=== PATIENT | female | born 1980 | race Two or more races ===

== ENCOUNTER 2020-11-14 17:53 | Inpatient (IN) | payer OTHER ==
[~2020-11-14] VITALS: Ht 157.5 cm; Wt 77.1 kg
[~2020-11-14 17:53] MED LIST: SYNTHROID50 MCG
[2020-11-15] MEDS ORDERED: SYNTHROID75 MCG (08:01)
== END 2020-11-17 16:30 | disposition home or self-care (01) | DRG 446 ==
LOC: ER 17:53 → MEDJ 23:40
PROVIDERS: ADMIT Internal Medicine; ATTEND Internal Medicine
PROC: 0FJB8ZZ Inspection of Hepatobiliary Duct, Via Natural or Artificial Opening Endoscopic (ICD-10-PCS; principal; 2020-11-15)
DX: K80.50 Calculus of bile duct without cholangitis or cholecystitis without obstruction (principal); Z20.822 Contact with and (suspected) exposure to COVID-19; E03.8 Other specified hypothyroidism; R10.13 Epigastric pain

== ENCOUNTER 2025-04-09 09:14 | Inpatient (IN) | payer OTHER ==
[~2025-04-09] VITALS: Ht 160 cm; Wt 72.6 kg
[~2025-04-09 09:14] MED LIST changes: +SYNTHROID75 MCG
--- NOTE | 2025-04-09 10:35 | NUR ---
PACIENTE REFIERE DOLOR ABDOMINAL Y VOMITOS, REFIERE CONSULTA CON DR. Dominic MRECHANT SE MIDEN SIGNOS VITALES Y SE UBICA EN PASILLO.
[2025-04-09] MEDS ORDERED: ONDANSETRON HCL 2 MG/ML VIAL ONE (10:56)
[2025-04-09] MEDS ORDERED: FAMOTIDINE/PF 20 MG in 0.9 % SODIUM CHLORIDE 8 ML IV PUSH STA (10:56)
[2025-04-09] MEDS ORDERED: FAMOTIDINE/PF 20 MG/2 ML VIAL ONE (10:57)
[2025-04-09] MEDS ORDERED: MORPHINE SULFATE 2 MG/ML SYRINGE IV ONE (11:00)
[2025-04-09] MEDS ORDERED: ONDANSETRON HCL 2 MG/ML VIAL IV ONE (11:00)
[2025-04-09] MEDS ORDERED: 0.9 % SODIUM CHLORIDE 1,000 ML IV SCH (11:00)
[2025-04-09 11:41] LABS: BASO % 0.4 % (0.1-1.2); EOS # 0.02 (0.04-0.54); EOS % 0.2 % (0.7-7.0); LYMPH # 1.19 (1.18-3.74); LYMPH % 12.2 % (19.3-53.1); MEAN PLATELET VOLUME 9.50 fl (9.4-12.4); MONO # 0.45 (0.24-0.82); MONO % 4.6 % (4.7-12.5); NEUT # 8.01 (1.56-6.13); NEUT % 82.3 % (34.0-71.1); RED CELL DISTRIBUTION WIDTH 11.8 % (11.6-14.4)
[2025-04-09 11:48] LABS: ERYTHROCYTE SEDIMENTATION RATE 32 mm/hr (0-20)
[2025-04-09 11:59] LABS: INR 1.11
[2025-04-09 12:04] LABS: ALT/SGPT 563.0 U/L (12-78); AST/SGOT 649.0 U/L (15-37); BILIRUBIN TOTAL 1.71 mg/dL (0.3-1.2); BILIRUBIN,CONJUGATED 0.64 mg/dL (0.0-0.2); BUN CREA RATIO 18.0 (7.0-25.0); CREATININE SERUM 0.9 mg/dL (0.55-1.02); GFR 67.41; GLOBULINA 4.4 G/DL (2.4-3.5); GLUCOSE FASTING 104.0 mg/dL (65-100); OSMOLALITY SERUM 281.0 MOSM/KG (275-295)
[2025-04-09 16:02] LABS: URINE APPEARANCE Clear; URINE BILIRRUBIN Negative (NEGATIVE); URINE BLOOD Negative; URINE COLOR Yellow; URINE GLUCOSE Negative (NEGATIVE); URINE KETONE 15 (NEGATIVE); URINE LEUKOCYTE Negative; URINE NITRATE Negative; URINE PROTEIN Negative (NEGATIVE); URINE UROBILINOGEN 0.2 E.U./dl
[2025-04-09 16:05] LABS: URINE BACTERIA 1223.9 uL (0.0-1933); URINE EPITHELIAL CELLS 32.4 uL (0.0-38.8); URINE RBC 4.2 uL (0.0-20.8); URINE WBC 11.3 uL (0.0-23.2)
[2025-04-09 16:10] LABS: URINE CAST 0.00 uL (0.0-1.40)
[2025-04-09] MEDS ORDERED: PIPERACILLIN/TAZOBACTAM SODIUM 3.375 GM in 0.9 % SODIUM CHLORIDE 100 ML IV SCH (18:36)
[2025-04-09] MEDS ORDERED: FAMOTIDINE/PF 20 MG in 0.9 % SODIUM CHLORIDE 100 ML IV SCH (18:37)
[2025-04-09] MEDS ORDERED: MORPHINE SULFATE 2 MG/ML SYRINGE IV PRN (18:45)
[2025-04-09] MEDS ORDERED: ONDANSETRON HCL 4 MG in 0.9 % SODIUM CHLORIDE 50 ML IV PRN (18:45)
[2025-04-09] MEDS ORDERED: PIPERACILLIN/TAZOBACTAM SODIUM 3.375 GM VIAL IV ONE (19:01)
[2025-04-09 20:26] VITALS: BP 117/80; O2SAT 100
[2025-04-10 02:42] VITALS: BP 122/73; O2SAT 98
[2025-04-10 05:34] LABS: BASO % 0.7 % (0.1-1.2); EOS # 0.06 (0.04-0.54); EOS % 0.8 % (0.7-7.0); LYMPH # 2.06 (1.18-3.74); LYMPH % 28.8 % (19.3-53.1); MEAN PLATELET VOLUME 9.90 fl (9.4-12.4); MONO # 0.49 (0.24-0.82); MONO % 6.8 % (4.7-12.5); NEUT # 4.49 (1.56-6.13); NEUT % 62.8 % (34.0-71.1); RED CELL DISTRIBUTION WIDTH 12.0 % (11.6-14.4)
[2025-04-10 05:55] LABS: INR 1.13
[2025-04-10 06:00] LABS: ALT/SGPT 756 U/L (12-78); AST/SGOT 632 U/L (15-37); BILIRUBIN TOTAL 0.89 mg/dL (0.3-1.2); BUN CREA RATIO 17 (7.0-25.0); CREATININE SERUM 0.81 mg/dL (0.55-1.02); GFR 76.12; GLOBULINA 3.2 G/DL (2.4-3.5); GLUCOSE FASTING 80 mg/dL (65-100); OSMOLALITY SERUM 284 MOSM/KG (275-295)
[2025-04-10 09:10] VITALS: BP 115/65; O2SAT 98
[2025-04-10 18:47] VITALS: BP 132/79; O2SAT 100
[2025-04-10 21:23] LABS: FE 85.0 ug/dl (50-170)
[2025-04-10 22:19] LABS: GAMMA GLUTAMIL TRANSFERASE 603.0 U/L (5-55)
[2025-04-11 01:12] VITALS: BP 126/72; O2SAT 95
[2025-04-11 08:35] VITALS: BP 122/68; O2SAT 98
[2025-04-11] MEDS ORDERED: FAMOTIDINE/PF 20 MG/2 ML VIAL ONE (15:38)
[2025-04-11] MEDS ORDERED: PIPERACILLIN/TAZOBACTAM SODIUM 3.375 GM VIAL IV ONE (15:38)
[2025-04-11 15:44] LABS: ALT/SGPT 477.0 U/L (12-78); AST/SGOT 167.0 U/L (15-37); BILIRUBIN TOTAL 0.89 mg/dL (0.3-1.2); BILIRUBIN,CONJUGATED 0.23 mg/dL (0.0-0.2)
[2025-04-11 22:17] VITALS: BP 126/74
[2025-04-12 01:56] VITALS: BP 132/75; O2SAT 99
[2025-04-12 07:04] LABS: ALT/SGPT 558.0 U/L (12-78); AST/SGOT 278.0 U/L (15-37); BILIRUBIN TOTAL 0.87 mg/dL (0.3-1.2); BILIRUBIN,CONJUGATED 0.31 mg/dL (0.0-0.2)
[2025-04-12 08:29] VITALS: BP 125/76; O2SAT 98
[2025-04-12] MEDS ORDERED: MORPHINE SULFATE 2 MG/ML CARTRIDGE IV PRN (09:00)
[2025-04-12 12:11] LABS: hav igm Negative (Negative); hep b c Negative (Negative); hep b s ag Negative (Negative)
[2025-04-12] MEDS ORDERED: IOVERSOL 320 MG/ML - 50 ML VIAL IV ONE (14:21)
[2025-04-12] MEDS ORDERED: GLUCAGON 1 MG VIAL ONE (14:56)
[2025-04-12] MEDS ORDERED: PIPERACILLIN/TAZOBACTAM SODIUM 3.375 GM VIAL IV ONE (16:19)
[2025-04-12 20:12] VITALS: BP 140/90
[2025-04-13 01:09] VITALS: BP 111/68; O2SAT 96
[2025-04-13 11:08] VITALS: BP 139/77; O2SAT 98
[2025-04-13 12:20] LABS: ALT/SGPT 555.0 U/L (12-78); AST/SGOT 223.0 U/L (15-37); BILIRUBIN TOTAL 0.46 mg/dL (0.3-1.2); BILIRUBIN,CONJUGATED 0.21 mg/dL (0.0-0.2)
[2025-04-13] MEDS ORDERED: PIPERACILLIN/TAZOBACTAM SODIUM 3.375 GM VIAL IV ONE (16:07)
== END 2025-04-13 17:14 | disposition home or self-care (01) | DRG 446 ==
LOC: ER 09:15 → MEDI 19:09
PROVIDERS: General Practice; Internal Medicine Gastroenterology; Internal Medicine Infectious Disease; ADMIT Student in an Organized Health Care Education/Training Program; ATTEND Student in an Organized Health Care Education/Training Program
PROC: BW21YZZ Computerized Tomography (CT Scan) of Abdomen and Pelvis using Other Contrast (ICD-10-PCS; 2025-04-09)
PROC: BW40ZZZ Ultrasonography of Abdomen (ICD-10-PCS; 2025-04-09)
PROC: BF37ZZZ Magnetic Resonance Imaging (MRI) of Pancreas (ICD-10-PCS; 2025-04-09)
PROC: 0FJD8ZZ Inspection of Pancreatic Duct, Via Natural or Artificial Opening Endoscopic (ICD-10-PCS; principal; 2025-04-12 15:00)
DX: K80.50 Calculus of bile duct without cholangitis or cholecystitis without obstruction (principal); E03.9 Hypothyroidism, unspecified; R74.01 Elevation of levels of liver transaminase levels; E80.6 Other disorders of bilirubin metabolism